=== PATIENT | male | born 1985 | race Caucasian/White ===

== ENCOUNTER 2017-02-22 10:49 | Day surgery (SDC) | payer OTHER ==
[~2017-02-22] VITALS: Ht 185.4 cm; Wt 94.0 kg
[~2017-02-22 10:49] MED LIST: BUPIVACAINE/PF 0.5% ONE; EPINEPHRINE 1 MG/ML, 1ML ONE
[2017-02-22] MEDS ORDERED: FENTANYL PF 100 MCG/2ML ONE ×2 (11:12)
[2017-02-22] MEDS ORDERED: MIDAZOLAM 1 MG/ML, 2ML ONE (11:12)
[2017-02-22] MEDS ORDERED: PROPOFOL 10 MG/ML, 20ML ONE (11:13)
[2017-02-22] MEDS ORDERED: NEOSTIGMINE 1 MG/ML, 10ML ONE (11:14)
[2017-02-22] MEDS ORDERED: ROCURONIUM 10 MG/ML ONE (11:14)
[2017-02-22] MEDS ORDERED: CEFAZOLIN 1,000 MG ONE ×2 (11:15)
[2017-02-22] MEDS ORDERED: GLYCOPYRROLATE 0.2MG/1ML, 5ML ONE (11:15)
[2017-02-22 11:31] VITALS: BP 131/76
[2017-02-22] MEDS ORDERED: DOXY100C2 PO (11:31)
[2017-02-22] MEDS ORDERED: LACTATED RINGERS 1,000 ML IV SCH (11:37)
[2017-02-22] MEDS ORDERED: EPINEPHRINE 1 MG/ML, 1ML ONE (11:51)
[2017-02-22] MEDS ORDERED: BUPIVACAINE/PF 0.5% ONE (11:51)
[2017-02-22] MEDS ORDERED: PLEASE ENTER HEIGHT AND WEIGHT MC SCH (12:00)
[2017-02-22] MEDS ORDERED: OXYcodone 5 MG/5 ML ORAL.SOL UDC PO PRN (13:00)
[2017-02-22] MEDS ORDERED: MEPERIDINE/PF 25MG/0.5ML IVPush PRN (13:00)
[2017-02-22] MEDS ORDERED: HYDROmorphone 1 MG/ML, 1ML IV PRN (13:00)
[2017-02-22] MEDS ORDERED: ACETAMINOPHEN 325 MG TABLET PO PRN (13:00)
[2017-02-22] MEDS ORDERED: FENTANYL PF 100 MCG/2ML IV PRN (13:00)
[2017-02-22] MEDS ORDERED: ONDANSETRON 2MG/ML, 2ML IVPush PRN ×2 (13:00→13:30)
[2017-02-22] MEDS ORDERED: PROMETHAZINE 25 MG/ML, 1ML IV PRN (13:00)
[2017-02-22] MEDS ORDERED: KETOROLAC 30 MG/1 ML IVPush PRN (13:30)
[2017-02-22] MEDS ORDERED: morphine SULFATE 10 MG/ML, 1ML IVPush PRN (13:30)
[2017-02-22] MEDS ORDERED: OXYcodone 5 MG/5 ML ORAL.SOL UDC ONE (13:33)
[2017-02-22] MEDS ORDERED: ACETAMINOPHEN 650 MG/20.3 ML UDC ONE (13:34)
[2017-02-22] MEDS ORDERED: ACETAMINOPHEN 325 MG TABLET ONE (13:34)
[2017-02-22] MEDS ORDERED: KETOROLAC 30 MG/1 ML ONE (13:34)
== END 2017-02-22 15:35 ==
LOC: OUT 10:49
PROVIDERS: ATTEND Surgery
DX: K43.6 Other and unspecified ventral hernia with obstruction, without gangrene (principal)
CPT/HCPCS: 49572; J0171; J0690; J1885; J2250; J2704; J2710; J3010; J3490